=== PATIENT | female | born 1945 | race African-American/Black ===

== ENCOUNTER → 2017-10-24 | Outpatient (CLI) | payer MEDICARE, OTHER ==
[~2017-10-24] MED LIST: ARTHROTEC 550 MG/TAB PO; ASPIRIN 32325 MG/TAB PO; CALCIUM 600 PLU1 TAB PO; CALCIUM 600600 M2 PO; CYANOCOBAL1000 MCG/1; DIOVAN 80MG80 MG PO; FOLIC ACID 11 MG/TA1 PO; HCTZ12.5TAB PO; KEPPRA 500MG500 MG PO; KLOR-CON M2020 MEQ PO; LIPITOR 10MG10 MG PO; MIRALAX PA17 GM/Dose PO; NATURE'S BLEN5000 IU PO; NEURONTIN300 MG/CAP PO; NORCO 325 MG-51 TAB PO; NORVASC 5MG5 MG/TAB PO; PLAVIX 75MG TAB75 MG PO; PRINZIDE 12.5 M1 TA1 PO; SENOKOT8.6 MG PO; TYLENOL 325MG325 MG PO; ULTRAM 50MG TAB50 MG; VITAMIN D5000 IU PO; ZESTRIL 20MG TA20 MG PO
== END ==
LOC: COL.RAD 07:19
DX: Z01.89 Encounter for other specified special examinations (principal)

== ENCOUNTER 2017-12-05 07:50 | Outpatient (CLI) | payer MEDICARE ==
[~2017-12-05] VITALS: Ht 160 cm; Wt 110.5 kg
[2017-12-05] VITALS (8 sets, daily range): BP systolic 147–183; BP diastolic 60–81; PULSE 70–88; TEMP 98
[~2017-12-05 07:50] MED LIST changes: +ULTRAM 50MG TAB50 MG PO
[2017-12-05] MEDS ORDERED: VOLTAREN GEL 1%1 TU TP (08:14)
== END 2017-12-05 11:20 | disposition home or self-care (01) ==
LOC: COL.RAD 07:50
DX: R93.8 Abnormal findings on diagnostic imaging of other specified body structures (principal); I51.7 Cardiomegaly; R33.9 Retention of urine, unspecified; G31.84 Mild cognitive impairment of uncertain or unknown etiology
CPT/HCPCS: Q9965

== ENCOUNTER → 2018-08-27 | Outpatient (CLI) | payer MEDICARE ==
[~2018-08-27] MED LIST changes: +VOLTAREN GEL 1%1 TU TP
== END ==
LOC: COL.VAS 13:56
DX: I51.0 Cardiac septal defect, acquired (principal)